=== PATIENT | female | born 1980 | race Caucasian/White ===

== ENCOUNTER 2023-12-16 08:30 | Emergency (ER) | payer OTHER, SELFPAY ==
[2023-12-16 08:31] VITALS: BP 129/94
--- NOTE | 2023-12-16 09:09 | ED.GENMED ---
History of Present Illness
General
Chief Complaint: Eye Problems
Source: patient
Exam Limitations: none
Time Seen by Provider: 12/16/23 08:56
Nursing documentation reviewed up to this point in time: agreed with
Travel History
Have you had any contact with someone who has COVID-19?: No
Do you have any symptoms of coronavirus? Fever > 100 degrees, chills, cough, shortness of breath, sore throat, loss of taste or smell, muscle aches, or headache?: No
History of Present Illness
History of Present Illness:
Pt is a 43 yr old female who presents for evaluation. Pt reports she has had sore throat sinus issues cough for past week. She denies any fevers .
She reports she noticed that her left eye felt like she had an eyelash in her eye last night. She does wear contacts removed her contact lenses and woke up this morning with her eye crusted over. She denies any foreign body sensation. She denies
any eye pain or decreased vision. She has been wearing her glasses since. She complains of slight irritation feeling to the left eye.
Past History
Past History
ED Past Medical History: None
ED Past Surgical History: Other
Social History
Tobacco: Non-smoker
Alcohol: Occasional
Drug: None
Personal:
Living: with family
Employment: Employed
Review of Systems
Review of Systems
Allergies reviewed?: Yes
All Other Systems: ROS reviewed and negative except as documented in HPI and ROS
Constitutional: Reports no symptoms; Denies fever, fatigue or chills
EENT: Reports other (Runny nose postnasal drip, irritated left eye eye crusted shut this morning)
Respiratory: Reports cough; Denies trouble breathing
Cardiac: Reports no symptoms
ABD/GI: Reports no symptoms
: Reports no symptoms
Musculoskeletal: Reports no symptoms
Skin: Reports no symptoms
Neurological: Reports no symptoms
Endocrine: Reports no symptoms
Psychiatric: Reports no symptoms
Phy Exam
General Physical Exam
General Presentation: no apparent distress
General age: appears stated age
General Skin: warm and dry
General Habitus: normal
General Mental: alert
General Hydration: appears well hydrated
Eye Exam
Eye Exam: PERRL, EOMI and other (Left eyes mildly injected no drainage no swelling or redness to eyelids extraocular movements intact no pain with eye movements no corneal abrasion or dye uptake examined)
Able to obtain acuity?: Yes
Eye Exam General: PERRL: bilateral and EOM intact: bilateral
Pupil Exam: Bilateral: round and reactive
Cardiovascular Exam
Cardiovascular Exam: regular rate/rhythm, no murmur and normal peripheral pulses
Pulmonary Exam
Pulmonary Exam: lungs clear and no respiratory distress
Neurological Exam
Neurological Exam: alert and oriented x3
Musculoskeletal Exam
Musculoskeletal Exam: full ROM
Skin Exam
Skin Exam: normal color and warm/dry
Psychiatric Exam
Psychiatric Exam: normal mood/affect
Course
Orders/Labs/Results
Orders:
Orders
12/16/23 09:39
Visual Acuity- Treatment ONCE
12/16/23 09:46
COVID-19 Antigen Urgent
Source: Nasal Swab
INF RAPID [Influenza A+B Rapid Molecular] Urgent
RUSSEL Source: Nasal Swab
Specimen Description:
12/16/23 09:51
Ciprofloxacin HCl [Ciloxan 0.3% Ophthalmic Solution] See Dose Instructions OPHTH NOW STA
Vital Signs
Initial and Last Documented VS:
Initial Vital Signs
Temp Pulse Resp BP Pulse Ox
98.1 F 109 18 129/94 97
12/16/23 08:31 12/16/23 08:31 12/16/23 08:31 12/16/23 08:31 12/16/23 08:31
Last Documented Vital Signs
Temp Pulse Resp BP Pulse Ox
98.1 F 109 18 129/94 97
12/16/23 08:31 12/16/23 08:31 12/16/23 08:31 12/16/23 08:31 12/16/23 08:31
MDM/Problems Addressed
Differential Diagnosis Includes:
Not limited to viral syndrome, less likely influenza less likely COVID, viral conjunctivitis less likely corneal abrasion
MDM/Problems Addressed:
Patient is a 40-year-old female who has had runny nose cough sinus issues over the past several days to 1 week no fever or chills. She is nontoxic. She had some irritation to her left eye last night removed her contact lenses and woke up with
crusted eye this morning. Eye is mildly injected on exam no corneal abrasion or dye uptake.
Likely viral syndrome with viral conjunctivitis however as a contact lens wear will order dose of Cipro ophthalmic to patient's pharmacy.
*Critical Care Note
Total Time (30-74mins, 75-104mins- exclusive of procedures): Not Applicable
ED Attending Note
-
Portions of this chart may have been created with voice recognition software.� Occasional wrong word or��sound alike� substitutions may have occurred due to the inherent limitations of voice recognition software.
Discharge Plan
Departure
Patient Disposition: Home (Routine Discharge)
Date of Disposition: 12/16/23
Time of Disposition: 09:41
Patient with high blood pressure during this ER visit?: Yes
Condition: Fair
Covid-19: Not Applicable
Discharge Problem:
Acute viral syndrome, Conjunctivitis
Instructions: Conjunctivitis (Pinkeye) (DC), Viral Syndrome (DC), How to Use Eye Drops, BLOOD PRESSURE
Prescriptions:
New
ciprofloxacin HCl 0.3 % drops
See Rx Instructions .ROUTE .COMPLEX Qty: 10 0RF
Rx Instructions:
1 to 2 drops every 2 hours to left eye while awake for 2 days and then 1 to 2 drops every 4 hours while awake for the next 5 days
No Action
[id number] serr [Glucosamine Daily Complex] 1 EACH tablet
2 ea PO DAILY
multivitamin Tablet
1 tab PO DAILY
melatonin 10 mg Tablet
10 mg PO HS PRN (Reason: Insomnia)
ibuprofen 100 mg/5 mL suspension
400 mg PO Q6H PRN (Reason: pain) Qty: 473 0RF
Referrals:
Jackie Lombardo MD [Family Provider] -
Activity Restrictions/Additional Instructions:
A prescription for Cipro eyedrops was sent to your pharmacy use as directed 1 to 2 drops every 2 hours to the left eye while awake for 2 days and then 1 to 2 drops every 4 hours while awake for the next 5 days. Follow-up with your family doctor
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 Do not wear contacts until symptoms resolved and
you are cleared by ophthalmology
Interventions
Interventions:
*Risk Screen - Suicide Last Done: 12/16/23 08:55
*General Assessment Last Done: 12/16/23 08:55
*Neglect/Abuse Screening Last Done: 12/16/23 08:55
ED- Fall Risk Assessment Last Done: 12/16/23 08:55
*ED COVID-19 Vaccine History Last Done: 12/16/23 08:55
Discharge Date and Time
Print Language: LEBANESE
[2023-12-16] MEDS: CILOXAN 0.3% OPHTHALMIC SOLUTION 1 DROP OPHTH (10:11)
[2023-12-16 10:12] LABS: COVID-19 Antigen Negative (Negative)
[2023-12-16 10:35] VITALS: BP 139/90
--- NOTE | 2023-12-16 10:35 | EDRN ---
Reviewed discharge instructions with patient. Verbalized understanding. Ambulated with steady gait to the lobby.
== END 2023-12-16 10:35 | disposition home or self-care (01) ==
LOC: EMR 08:30
PROVIDERS: Nurse Practitioner; EMERGENCY PHYSICIAN Emergency Medicine; FAMILY PHYSICIAN Family Medicine
DX: B34.9 Viral infection, unspecified (principal); H10.9 Unspecified conjunctivitis; Z11.52 Encounter for screening for COVID-19; R03.0 Elevated blood-pressure reading, without diagnosis of hypertension; M19.90 Unspecified osteoarthritis, unspecified site; Z87.891 Personal history of nicotine dependence
CPT/HCPCS: 99283; 87502; 87811